=== PATIENT | female | born 1985 | race Caucasian/White ===

== ENCOUNTER 2022-06-25 21:39 | Emergency (ER) | payer OTHER, SELFPAY ==
[2022-06-25 21:40] VITALS: BP 144/87; PULSE 72; RESP 20; TEMP 36.4; O2SAT 100
--- NOTE | 2022-06-25 22:51 | ED.DENTAL ---
HPI - Dental/Oral General Chief complaint: Dental/Oral Stated complaint: tooth pain Time Seen by Provider: 06/25/22 22:00 History of Present Illness HPI Narrative: Patient is a 37-year-old female presenting with dental pain. Patient states that for the last 1 to 2 days she has had severe right upper dental pain. States that she has not been able to sleep because of it. She denies significant swelling. She denies difficulty swallowing or breathing. States that she does not yet have a dentist in this area. Denies recent fevers. Denies further complaints. Related Data Allergies Allergy/AdvReac Type Severity Reaction Status Date / Time erythromycin base Allergy Unknown Verified 04/16/10 15:24 Review of Systems Review of Systems: All systems reviewed & are unremarkable except as noted in HPI and below Exam Narrative: GENERAL: Well-appearing, well-nourished, and in no acute distress. HEAD: Normocephalic, atraumatic. EYES: PERRLA and EOMI. ENT: Nares clear, no rhinorrhea or epistaxis. Mucous membranes moist. several dental caries, tooth +3 with tenderness, no fluctuance or abscess noted NECK: Supple. CHEST: No respiratory distress. HEART: Regular rate and rhythm. ABDOMEN: nondistended EXTREMITIES: Normal range of motion. No edema. SKIN: Warm, dry, no rash. NEURO: No focal deficits. Alert and oriented x3. PSYCH: Normal mood and affect. Course Vital Signs Vital signs: Vital Signs Temperature 97.6 F 06/25/22 21:40 Pulse Rate 72 06/25/22 21:40 Respiratory Rate 20 06/25/22 21:40 Blood Pressure 144/87 H 06/25/22 21:40 Pulse Oximetry 100 06/25/22 21:40 Oxygen Delivery Room Air 06/25/22 21:40 Temperature 97.6 F 06/25/22 21:40 Pulse Rate 72 06/25/22 21:40 Respiratory Rate 20 06/25/22 21:40 Blood Pressure 144/87 H 06/25/22 21:40 Pulse Oximetry 100 06/25/22 21:40 Oxygen Delivery Room Air 06/25/22 21:40 MDM - Dental/Oral MDM Narrative Medical decision making narrative: Patient is a 37-year-old female presenting with several days of right upper dental pain. Patient is a bit hypertensive, otherwise vitals are within normal limits. Exam is remarkable for the above. Patient states that she plans on finding a dentist tomorrow morning. We will give the patient a [place] and shot of IM Toradol tonight. We will get her started on penicillin. Appropriate return precautions given. Patient discharged in stable condition. Differential Diagnosis Differential diagnosis: Likely dental caries, toothache and fracture of tooth Medical Records Attestation: I reviewed the patient's medical records. Critical Care Time Critical Care Time Critical Care Time: No Discharge Plan Discharge Clinical Impression: Pain, dental Patient Disposition: Home, Self-Care Condition: Stable Instructions: Antibiotic Form, Toothache (ED) Additional Instructions: Please take the antibiotics as prescribed. Please follow-up closely with a dentist. We recommend ibuprofen for pain control. If your symptoms worsen, you develop difficulty breathing or swallowing, or other concerning symptoms arise, please return to the ER. Prescriptions: New penicillin V potassium 500 mg tablet 500 mg PO Q6H 7 Days Qty: 28 0RF Follow-up/Referrals: PHYSICIAN NOT ON STAFF,NONSTAFF [Primary Care Provider] - Stand Alone Forms: Work/School Release IP
[2022-06-25] MEDS: PENICILLIN V POTASSIUM 250 MG TABLET 500 MG PO (22:54)
[2022-06-25] MEDS: KETOROLAC 30 MG/ML VIAL (*BKC) IM (22:55)
[2022-06-25] MEDS: HYDROcodone/acetaminophen (*CRX) 5-325 MG TABLET 1 TAB PO (22:55)
== END 2022-06-25 23:04 | disposition home or self-care (01) ==
PROVIDERS: Emergency Provider Emergency Medicine
DX: K08.89 Other specified disorders of teeth and supporting structures (principal)
CPT/HCPCS: 96372; 99283; A9270; J1885